=== PATIENT | male | born 1970 | race Caucasian/White ===

== ENCOUNTER 2021-05-20 12:19 | Outpatient (CLI) | payer BC, SELFPAY ==
[2021-05-20 15:03] LABS: Semen Analysis Post Vas ABSENT
[2021-05-21 11:25] LABS: Pathologist Review Reviewed
== END 2021-05-20 23:59 | disposition home or self-care (01) ==
LOC: LABSPEC 12:25
PROVIDERS: Visit Provider Urology
DX: Z98.52 Vasectomy status (principal)
CPT/HCPCS: 89321